=== PATIENT | male | born 1975 | race Hispanic/Latino ===

== ENCOUNTER 2017-10-14 13:50 | Emergency (ER) | payer OTHER ==
[2017-10-14 13:56] VITALS: RESP 16; TEMP 98; O2SAT 100
--- NOTE | 2017-10-14 14:29 | ED PDOC ---
HPI: Chest Pain Time Seen by Provider: 10/14/17 14:16 Chief Complaint (Nursing): Palpitations Chief Complaint (Provider): palpitations History Per: Patient Additional Complaint(s): 42 -year-old male with history of anxiety presents to emergency department with chest pain and palpitations that started earlier today. Patient was seen at urgent care and was sent to emergency department for further evaluation. Upon arrival he states that the palpitations have resolved and he believes that he had an anxiety attack which triggered his symptoms. Patient states he has anxiety daily and has had panic attacks similar to today's symptoms in the past. He denies any suicidal or homicidal ideation. Patient admits to drinking alcohol last night and states that he has had panic attacks in the past when having had alcohol the night before. He denies any drug use. Past Medical History Reviewed: Historical Data, Nursing Documentation, Vital Signs Vital Signs: Last Vital Signs Temp 98.0 F 10/14/17 13:53 Pulse 95 H 10/14/17 15:40 Resp 16 10/14/17 15:40 BP 147/84 10/14/17 15:40 Pulse Ox 100 10/14/17 15:40 - Medical History PMH: No Chronic Diseases - Family History Family History: States: No Known Family Hx - Living Arrangements Living Arrangements: With Family - Social History Current smoker - smoking cessation education provided: No Alcohol: Social Drugs: Denies - Allergies Allergies/Adverse Reactions: Allergies Allergy/AdvReac Type Severity Reaction Status Date / Time No Known Allergies Allergy Verified 10/14/17 13:53 MAXIME Risk Score for UA/NSTEMI - MAXIME Risk Score Age > 64: NO 3 or more CAD Risk Factors: NO Known CAD (Stenosis greater than 50%): NO Aspirin use in past 7 days: NO Severe Angina: NO EKG ST changes greater than 0.5mm: NO Positive Cardiac Marker: NO MAXIME Score: 0 Risk %: 5% Curb-65 Severity Score - CURB-65 Severity Score Confusion: No Bun >19mg/dl (>7mmol/L): No Respiratory Rate greater than/equal to 30: No Systolic BP <90 or Diastolic BP less than/equal 60mmHg: No Age >64: No Curb-65 Score: 0 Percentage 30-day mortality: 0.6% Wells Criteria for PE - Wells Criteria for Pulmonary Embolism Clinical Signs and Symptoms of DVT: No P.E is #1 Diagnosis, or Equally Likely: No Heart Rate >100: No Immobilization at least 3 days;Surgery previous 4 weeks: No Previous, objectively diagnosed PE or DVT: No Hemoptysis: No Malignancy w/treatment within 6 months, or palliative: No Total Score: 0 Review of Systems ROS Statement: Except As Marked, All Systems Reviewed And Found Negative Constitutional: Negative for: Fever Cardiovascular: Positive for: Chest Pain, Palpitations Respiratory: Negative for: Cough, Shortness of Breath, SOB with Exertion, Wheezing Gastrointestinal: Negative for: Nausea, Vomiting Neurological: Negative for: Headache, Dizziness Physical Exam - Reviewed Nursing Documentation Reviewed: Yes Vital Signs Reviewed: Yes - Physical Exam Appears: Positive for: Well, Non-toxic, No Acute Distress Skin: Negative for: Rash Eye Exam: Positive for: Normal appearance Neck: Positive for: Normal Cardiovascular/Chest: Positive for: Regular Rate, Rhythm, Chest Non Tender. Negative for: Edema Respiratory: Positive for: Normal Breath Sounds Gastrointestinal/Abdominal: Positive for: Soft. Negative for: Tenderness, Distended, Guarding, Rebound Back: Negative for: L CVA Tenderness, R CVA Tenderness Extremity: Negative for: Pedal Edema Neurologic/Psych: Positive for: Alert, Oriented - Laboratory Results Result Diagrams: 10/14/17 14:40 10/14/17 14:40 Urine dip results: Positive for: Ketones. Negative for: Leukocyte Esterase, Blood, Nitrate, Glucose, Bilirubin, Protein - ECG Interpretation Of ECG: NSR 97 bpm, no acute finding, reviewed by PA and ED attending. O2 Sat by Pulse Oximetry: 100 Pulse Ox Interpretation: Normal - Other Rad bedside chest X-Ray: Interpreted by Me, Viewed By Me Medical Decision Making Medical Decision Makin-year-old male with history of anxiety, now with resolving palpitations Plan: EKG Chest x-ray CBC CMP Trop Urine dip BAL UDS IVF bolus Patient was offered crisis consultation but he declined. He denies suicidal or homicidal ideation. Patient is aware of all diagnostic testing results. All questions answered. Advised follow up with PMD, psychiatrist and director of state. Patient is aware he can RTED at any time if acutely worse. Disposition - Clinical Impression Clinical Impression: Palpitations, Anxiety - Patient ED Disposition Is Patient to be Admitted: No Counseled Patient/Family Regarding: Studies Performed, Diagnosis, Need For Followup - Disposition Referrals: Ifeanyi Crawley MD [Staff Provider] - Disposition: Routine/Home Disposition Time: 16:08 Condition: STABLE Additional Instructions: Follow up with primary care doctor and psychiatrist. Obtain work up from director of state. Return to ED any time if acutely worse. Instructions: Anxiety (ED), Palpitations (ED) Forms: [employer] (Thai) Results - Lab Results Lab Results: 10/14/17 10/14/17 10/14/17 14:55 14:40 14:40 WBC 6.3 RBC 4.73 Hgb 14.0 Hct 42.5 MCV 90.0 MCH 29.6 MCHC 32.9 L RDW 13.5 Plt Count 212 MPV 9.4 Neut % (Auto) 77.4 H Lymph % (Auto) 14.8 L Blaine % (Auto) 6.7 Eos % (Auto) 0.7 Baso % (Auto) 0.4 Neut # 4.9 Lymph # 0.9 L Blaine # 0.4 Eos # 0.0 Baso # 0.0 Sodium 143 Potassium 4.6 Chloride 105 Carbon Dioxide 25 Anion Gap 18 BUN 14 Creatinine 0.8 Est GFR ( Amer) > 60 Est GFR (Non-Af Amer) > 60 Random Glucose 95 Calcium 9.5 Total Bilirubin 0.6 AST 33 ALT 62 Alkaline Phosphatase 70 Troponin I < 0.0120 Total Protein 7.7 Albumin 4.8 Globulin 2.9 Albumin/Globulin Ratio 1.6 Urine Opiates Screen Negative Urine Methadone Screen Negative Ur Barbiturates Screen Negative Ur Phencyclidine Scrn Negative Ur Amphetamines Screen Negative U Benzodiazepines Scrn Negative U Oth Cocaine Metabols Negative U Cannabinoids Screen Negative Alcohol, Quantitative < 10
[2017-10-14] MEDS ORDERED: Sodium Chloride 0.9% 1,000 ML IV STA (14:30)
[2017-10-14 15:05] LABS: BASO % 0.4 % (0.0-2.0); EOS % 0.7 % (0.0-4.0); HEMATOCRIT 42.5 % (35.0-51.0); LYMPH # 0.9 K/uL (1.0-4.3); LYMPH % 14.8 % (20.0-40.0); MEAN CORPUSCULAR HEMOGLOBIN 29.6 pg (27.0-31.0); MEAN CORPUSCULAR HGB CONC 32.9 g/dL (33.0-37.0); MEAN PLATELET VOLUME 9.4 fl (7.2-11.7); MONO # 0.4 K/uL (0.0-0.8); MONO % 6.7 % (0.0-10.0); NEUT # 4.9 K/uL (1.8-7.0); NEUT % 77.4 % (50.0-75.0); RED CELL DISTRIBUTION WIDTH 13.5 % (11.5-14.5); WHITE BLOOD COUNT 6.3 K/uL (4.8-10.8)
[2017-10-14 15:16] LABS: ALB/GLOB RATIO 1.6 (1.0-2.1); ALCOHOL SERUM < 10 mg/dl (0-10); ALKALINE PHOSPHATASE 70 U/L (38-126); ALT/SGPT 62 U/L (21-72); AST/SGOT 33 U/L (17-59); BLOOD UREA NITROGEN 14 mg/dl (9-20); CALCIUM 9.5 mg/dL (8.4-10.2); CARBON DIOXIDE 25 mmol/L (22-30); CHLORIDE 105 mmol/L (98-107); GFR AFRICAN-AMERICAN > 60; GLUCOSE,RANDOM 95 mg/dL (75-110); POTASSIUM 4.6 MMOL/L (3.6-5.0); SODIUM 143 mmol/l (132-148); TOTAL PROTEIN 7.7 G/DL (6.3-8.2)
[2017-10-14 15:21] LABS: BILIRUBIN,TOTAL 0.6 mg/dl (0.2-1.3)
[2017-10-14 15:41] VITALS: BP 147/84; PULSE 95
--- NOTE | 2017-10-14 18:04 | RAD ---
HISTORY: chest pain COMPARISON: No prior. FINDINGS: LUNGS: No active pulmonary disease. PLEURA: No significant pleural effusion identified, no pneumothorax apparent. CARDIOVASCULAR: Normal. OSSEOUS STRUCTURES: No significant abnormalities. VISUALIZED UPPER ABDOMEN: Normal. OTHER FINDINGS: None. IMPRESSION: No acute cardiopulmonary disease appreciated.
== END 2017-10-14 16:16 | disposition home or self-care (01) ==
LOC: H.ER 13:50
DX: R00.2 Palpitations (principal); F41.9 Anxiety disorder, unspecified
CPT/HCPCS: 71010; 80053; 80320; 80324; 80345; 80346; 80349; 80353; 80358; 80361; 83992; 84484; 85025; 96360; 99283; J7040